=== PATIENT | female | born 1955 | race Caucasian/White ===

== ENCOUNTER 2021-04-21 11:33 | Outpatient (CLI) | payer BC, SELFPAY ==
--- NOTE | ~2021-04-21 | MM_ITS ---
EXAMINATION: MM screening candace BI w brisa HISTORY: Screening mammogram TECHNIQUE: Craniocaudal and mediolateral oblique 3-D tomosynthesis images were obtained and synthetic 2-D images were generated. CAD analysis was submitted and interpreted. COMPARISON: No prior mammogram is available for comparison at this institution. BREAST PARENCHYMAL COMPOSITION: There are scattered areas of fibroglandular density. FINDINGS: There is no evidence of suspicious mass, calcification, or architectural distortion to sugg est malignancy in either breast. IMPRESSION: 1. No mammographic evidence of malignancy. 2. Recommend routine screening mammography in one year. BI-RADS Category 1: Negative Reviewed, dictated and finalized at location A.
== END 2021-04-21 11:34 | disposition home or self-care (01) ==
LOC: ANHIMG 11:34
PROVIDERS: PCP Family Medicine; Visit Provider Family Medicine
DX: Z12.31 Encounter for screening mammogram for malignant neoplasm of breast (principal)
CPT/HCPCS: 77063; 77067

== ENCOUNTER 2021-06-01 07:47 | Outpatient (RCR) | payer BC, SELFPAY ==
[2021-04-20 09:56] VITALS: BMI 25.0
== END 2021-07-05 17:09 | disposition home or self-care (01) ==
LOC: ANHWOC 07:47
PROVIDERS: PCP Family Medicine; Visit Provider Family Medicine
DX: L97.129 Non-pressure chronic ulcer of left thigh with unspecified severity (principal)
CPT/HCPCS: 99212; G0463

== ENCOUNTER 2021-07-08 01:02 | Day surgery (SDC) | payer BC, SELFPAY ==
[2021-07-01 08:15] VITALS: BMI 24.9
--- NOTE | 2021-07-08 07:17 | WPDHPUPDATE1 ---
History and Physical Update Update Date/Time: 07/08/21 07:17 History and Physical has been reviewed, including an updated exam of the patient. There are NO changes in the patient's condition. Risks, benefits, and alternatives have been discussed and questions answered. Patient agrees to proceed with procedure.
[2021-07-08 07:35] VITALS: BP 124/73; PULSE 84; RESP 16; TEMP 36.8; O2SAT 99
[2021-07-08] MEDS: LACTATED RINGERS 1,000 ML 30 ML IV CONT (07:43)
--- NOTE | 2021-07-08 08:04 | WPDANESEPPF ---
Anes - Initial Pre Proc Eval Procedure: Operation Date: 07/08/21 09:00 Proposed Procedures p Excision Of Basal Cell Carcinoma Left Lateral Thigh With Frozen Section, Possible Full Thickness Skin Graft - Pepe Cruz MD Date/Time: 07/08/21 08:04 Surgeon: Pepe Cruz MD Pre Op Diagnosis: Basal Cell Ca Lt Lateral Thigh Patient Data Age: 65 Gender: F Height: 1.65 m Weight: 67.4 kg Last Vital Signs Temp 36.8 C 07/08/21 07:35 Pulse 84 07/08/21 07:35 Resp 16 07/08/21 07:35 BP 124/73 07/08/21 07:35 Pulse Ox 99 07/08/21 07:35 Allergies Allergy/AdvReac Type Severity Reaction Status Date / Time No Known Allergies Allergy Verified 07/08/21 07:34 Home Medications Medication Instructions Recorded Confirmed Type No Home Medications 04/13/21 07/01/21 History Patient hx anesthesia problems: none Family hx anesthesia problems: none Results Review: All pre-operative results and documents have been reviewed as part of the pre-operative evaluation. [facility] Surgical History Surgical History History of hysterectomy with bilateral oophorectomy Family History Family History Mother Diabetes mellitus Social History Social History Smoking status: Never smoker Second hand tobacco smoke exposure: No Alcohol intake: current Drinks per week: 2 Substance use: never Substance use type: does not use Living arrangements: with family Gender identity (if verbalized by the patient): Female Sexual Orientation (if Verbalized by the Patient): Straight or Heterosexual Spiritual care concerns: No Anes - Eval Final PreProcedure Day of Procedure 07/08/21 08:04 Patient weight: normal Heart: regular rate and rhythm Lungs: clear to auscultation Airway: Mallampati scale class 1 Neurological: alert and oriented Last oral intake: >/= 8 hours ASA classification: I Emergent: no Anesthetic plan: proceed Anesthesia type and monitoring: general GIVS and standard monitoring Results Review: All pre-operative results and documents have been reviewed as part of the pre-operative evaluation. Informed Consent: The patient's anesthetic plan and its attendant risks and benefits were discussed with the patient/family/POA. Questions were solicited and answers provided to the satisfaction of the patient/family/POA.
[2021-07-08] MEDS: LIDO 1%/EPINEPHRINE/PF 1:200,000 30 ML VIAL 10 ML INFILTRATE (09:01)
[2021-07-08 09:44] VITALS: BP 108/65; PULSE 70; RESP 16; O2SAT 96
--- NOTE | 2021-07-08 09:50 | P.OP_ITS ---
Procedure Note - Detailed Date of Procedure 07/08/21 Pre-op Diagnosis Basal Cell Ca Lt Lateral Thigh Post-op Diagnosis same Procedure Performed 2.7 cm excision of basal cell carcinoma of the left lateral thigh with frozen section and intermediate repair 8 cm Surgeon Pepe Cruz MD Anesthesia MAC Indications Biopsy Description of Procedure The ulcerated area on the left thigh of this patient was marked in holding area. She was taken to the operating room placed supine on the operating table. A time-out was held and confirmed. She was given IV sedation. The left thigh and hip area were prepped and draped in usual fashion. The site was carefully exam ined and a marking placed approximately 4-5 mm beyond the clinical ulcer for excision. A line for orientation of closure was also marked. This area was infiltrated with 1% lidocaine with epinephrine. A circular excision was carried out through the superficial fascia. The specimen was marked at its superior aspect for 12 o'clock and sent for frozen section . The pathologist revealed the tumor diagnosis remained the same basal cell carcinoma. And all margins were free. The wound margins were undermined beneath the superficial fascia in all directions. The closure was accomplished with 2-0 Vicryl suture in the superficial fascia and the dermis. The skin was closed with a running 5 0 nylon. A Xeroform, 4 x 4, Tegaderm bandage was applied. She is discharged home instructions in wound care and follow-up and a prescription hydrocodone 5/325 7 was sent to her pharmacy Estimated Blood Loss 2 Drains No Packing No Pathology yes Complications No immediate complications Condition stable Disposition same day
[2021-07-08 10:15] VITALS: BP 119/65; PULSE 61
[2021-07-08 10:35] VITALS: BP 117/69; PULSE 59
== END 2021-07-08 10:49 | disposition home or self-care (01) ==
PROVIDERS: PCP Family Medicine; Visit Provider Plastic Surgery
PROC: (CPT 11603; principal; 2021-07-08 09:00)
DX: C44.719 Basal cell carcinoma of skin of left lower limb, including hip (principal)
CPT/HCPCS: 11603; 12034; 88305; 88331; 88332; A9270; J2250; J2704; J3010; J7120

== ENCOUNTER 2022-07-15 07:56 | Outpatient (CLI) | payer MEDICARE, SELFPAY ==
--- NOTE | ~2022-07-15 | MM_ITS ---
EXAMINATION: MM screening candace BI w brisa HISTORY: Screening mammogram TECHNIQUE: Craniocaudal and mediolateral oblique 3-D tomosynthesis images were obtained and synthetic 2-D images were generated. CAD analysis was submitted and interpreted. COMPARISON: 04/21/2021 bilateral screening mammogram BREAST PARENCHYMAL COMPOSITION: The breasts are almost entirely fatty. FINDINGS: There is no evidence of suspicious mass, calcification, or architectural distortion to sugg est malignancy in either breast. There has been no suspicious interval change. IMPRESSION: 1. No mammographic evidence of malignancy. 2. Recommend routine screening mammography in one year. BI-RADS Category 1: Negative Reviewed, dictated and finalized at location A. RGROUND SUPERVISOR
== END 2022-07-15 07:57 | disposition home or self-care (01) ==
LOC: ANHIMG 07:59
PROVIDERS: PCP Family Medicine; Visit Provider Family Medicine
DX: Z12.31 Encounter for screening mammogram for malignant neoplasm of breast (principal)
CPT/HCPCS: 77063; 77067

== ENCOUNTER 2023-10-25 12:03 | Outpatient (CLI) | payer MEDICARE, SELFPAY ==
--- NOTE | ~2023-10-25 | XR_ITS ---
XR chest 2V 10/25/2023 12:26 Indication: Productive cough for one month Procedure: 2 view chest Comparison: No prior studies for comparison. Findings: There is right upper lobe pneumonia. Heart size normal. Small right pleural effusion. Left lung clear. No acute osseous abnormality. No pneumothorax. Impression: 1: Right upper lobe pneumonia. 2: Small right pleural effusion. Reviewed, dictated and finalized at location A. CRUSHING MACHINE OPERATOR Impression: 1: Right upper lobe pneumonia. 2: Small right pleural effusion.
[2023-10-25 13:11] LABS: Influenza A QL RT-PCR Negative (Negative); Influenza B QL RT-PCR Negative (Negative); RSV RNA, RT-PCR Negative (Negative); SARS-CoV-2 RNA PCR Negative (Negative)
== END 2023-10-25 12:04 | disposition home or self-care (01) ==
LOC: ANHLAB 12:05
PROVIDERS: PCP Family Medicine; Visit Provider Family Medicine
DX: J06.9 Acute upper respiratory infection, unspecified (principal); J18.9 Pneumonia, unspecified organism; J90 Pleural effusion, not elsewhere classified; Z20.822 Contact with and (suspected) exposure to COVID-19
CPT/HCPCS: 71046; 87637

== ENCOUNTER 2024-08-02 07:39 | Outpatient (CLI) | payer MEDICARE, SELFPAY ==
--- NOTE | ~2024-08-02 | MM_ITS ---
EXAMINATION: MM screening candace BI w brisa HISTORY: Screening TECHNIQUE: Craniocaudal and mediolateral oblique 3-D tomosynthesis images were obtained and synthetic 2-D images were generated. CAD analysis was submitted and interpreted. COMPARISON: Comparison to multiple prior studies sequentially, with oldest reviewed study dated 04/21. BREAST PARENCHYMAL COMPOSITION: Not dense: There are scattered areas of fibroglandular density. FINDINGS: There is no evidence of suspicious mass, calcification, or architectural distortion to sugg est malignancy in either breast. There has been no suspicious interval change. IMPRESSION: 1. No mammographic evidence of malignancy. 2. Recommend routine screening mammography in one year. BI-RADS Category 1: Negative Reviewed, dictated and finalized at location B. EQUIN MOLD MAKER
== END 2024-08-02 07:40 | disposition home or self-care (01) ==
LOC: ANHIMG 07:42
PROVIDERS: PCP Family Medicine; Visit Provider Family Medicine
DX: Z12.31 Encounter for screening mammogram for malignant neoplasm of breast (principal)
CPT/HCPCS: 77063; 77067

== ENCOUNTER 2025-08-05 12:03 | Outpatient (CLI) | payer MEDICARE, SELFPAY ==
--- NOTE | ~2025-08-05 | MM_ITS ---
EXAMINATION: MM screening candace BI w brisa HISTORY: Screening. TECHNIQUE: Craniocaudal and mediolateral oblique 3-D tomosynthesis images were obtained and synthetic 2-D images were generated. CAD analysis was submitted and interpreted. COMPARISON: 2023, 2021, and 2020 BREAST PARENCHYMAL COMPOSITION: Not Dense: There are scattered areas of fibroglandular FINDINGS: No suspicious masses are seen. There are no suspicious calcifications. No unexplained architectural distortion is seen. There are no skin or nipple abnormalities identified. There is no adenopathy seen on the images submitted. IMPRESSION: No mammographic evidence to suggest malignancy is seen. The patient may return to screening mammography as per ACR guidelines. BI-RADS 1 - Negative. Reviewed, dictated and finalized at location B. KROOM CLERK
== END 2025-08-05 12:04 | disposition home or self-care (01) ==
PROVIDERS: PCP Family Medicine; Visit Provider Family Medicine
DX: Z12.31 Encounter for screening mammogram for malignant neoplasm of breast (principal)
CPT/HCPCS: 77063; 77067